=== PATIENT | male | born 1990 | race Two or more races ===

== ENCOUNTER 2024-08-13 16:55 | Emergency (ER) | payer SELFPAY ==
[~2024-08-13] VITALS: Ht 182.9 cm; Wt 97.4 kg
[2024-08-13] MEDS ORDERED: CEPH500C PO (19:02)
[2024-08-13] MEDS ORDERED: IBUP-1456 PO (19:02)
[2024-08-13] MEDS: TETANUS-DIPTH-ACEL PERTUSSIS 0.5ML SYR Tdap IM ONE (19:19)
[2024-08-13 19:20] VITALS: BP 134/74; PULSE 64; RESP 16; TEMP 98.5; O2SAT 98
== END 2024-08-13 19:28 | disposition home or self-care (01) ==
LOC: ER 17:01
DX: S61.011A Laceration without foreign body of right thumb without damage to nail, initial encounter (principal); Z79.899 Other long term (current) drug therapy; X58.XXXA Exposure to other specified factors, initial encounter; Y93.89 Activity, other specified; Y92.89 Other specified places as the place of occurrence of the external cause; Y99.8 Other external cause status
CPT/HCPCS: 12001; 90471; 90715

== ENCOUNTER 2024-08-22 17:14 | Emergency (ER) | payer SELFPAY ==
[~2024-08-22] VITALS: Ht 182.9 cm; Wt 96.0 kg
[~2024-08-22 17:14] MED LIST: CEPH500C PO; IBUP-1456 PO
[2024-08-22 17:24] VITALS: BP 136/82; PULSE 83; RESP 18; TEMP 98.3; O2SAT 96
== END 2024-08-22 21:19 | disposition home or self-care (01) ==
LOC: ER 17:17
DX: S61.011D Laceration without foreign body of right thumb without damage to nail, subsequent encounter (principal); Z88.6 Allergy status to analgesic agent; X58.XXXD Exposure to other specified factors, subsequent encounter